=== PATIENT | female | born 1945 | race Asian ===

== ENCOUNTER 2017-05-03 12:57 | Outpatient (CLI) | payer MEDICARE, MEDICAID ==
[~2017-05-03] VITALS: Ht 157.5 cm; Wt 90.0 kg
[2017-05-03 13:00] VITALS: BP 129/64; PULSE 72; RESP 18; Ht 157.5 cm; Wt 90.0 kg
[2017-05-03] MEDS ORDERED: MONT10TA24 PO (13:32)
[2017-05-03] MEDS ORDERED: GABA400C14 PO (13:32)
[2017-05-03] MEDS ORDERED: HYD25 PO (13:32)
[2017-05-03] MEDS ORDERED: OMEP40CA6 PO (13:32)
[2017-05-03] MEDS ORDERED: ATOR20TA38 PO (13:32)
[2017-05-03] MEDS ORDERED: LOSA100T7 PO (13:32)
[2017-05-03] MEDS ORDERED: LORA10TA3 PO (13:32)
[2017-05-03] MEDS ORDERED: ALBU90AE INHALATION (13:32)
[2017-05-03] MEDS ORDERED: GABA300C16 PO (13:32)
--- NOTE | 2017-05-03 14:41 | PN ---
Date/Time of Note Date/Time of Note DATE: 05/03/17 TIME: 14:38 Assessment/Plan Assessment/Plan Assessment/Plan [facility] Progress Note Date of Service: 05/03/2017 Today's Impression & Plan: Overall has remained stable and doing well after laparoscopic cholecystectomy for challenging but uncomplicated operation. Right leg fracture does not appear to be related to the operation and not seem to complicate recovery. Discussed for 15 min counseling time regarding healthy life style and ways to achieve them. With above assessment, I've recommended the followin. F/u with PCP 2. F/u with us prn Thank you very much for allowing us to participate in the care of this very nice patient and wonderful family. If there are any questions, please feel free to contact me at . Major presenting problem: High-risk Complexity decision making: High complexity Please note: Spelling or grammatical errors in this note are likely due to EHR/ dictation systems and are not reflective of patient care quality. Occasional wrong-word or sound-alike substitutions may have occurred due to the inherent limitations of voice recognition software. Please read the chart carefully and recognize, using context, where the substitutions have occurred. The chart may also contain mistakes due to difficulties with voice recognition software. Also please note that the dictation timestamp of this note does not necessarily reflected time of the visit for this service. Updated Clinical Summary: Very pleasant 71-year-old lady with multiple comorbid issues and history of prior issues with gallbladder, presenting with possible acute cholecystitis. Status post difficult but uncomplicated laparoscopic cholecystectomy [facility] 04/10/2017 with findings of hyperemic and inflamed gallbladder without obvious gangrene or perforation. Comorbidities: 1. History of cholelithiasis with biliary colic. Status post difficult but uncomplicated laparoscopic cholecystectomy [facility] 04/10/2017 with findings of hyperemic and inflamed gallbladder without obvious gangrene or perforation. 2. BMI 36.3 3. Chronic gastroesophageal reflux disease 4. Hypertension 5. Hyperlipidemia 6. Asthma 7. Right shoulder arthroscopy Subjective: No major events or complaints since d/c other than above. No major pain complaints and no longer on pain medications for the wounds. No N/V, SOB or CP. + bowel activity. Objective: Vitals: reviewed; please also see EHR Physical Exam: Lungs: breathing comfortably without tachypnea; no audible wheezes, rales or rhonchi on gross exam Abd: Soft, non-tender to mildly tender in the right upper quadrant, and non- distended; no peritoneal signs or guarding. Incisions clean, dry, and intact without any obvious erythema, edema, discharge, or hernia. Skin: Appears pink and feels warm to touch. Right leg in a cast. Neuro: Awake, alert and follows commands appropriately Exam/Review of Systems Vital Signs Vitals Vital Signs Date Time Temp Pulse Resp B/P Pulse Ox O2 Delivery O2 Flow Rate FiO2 05/03/17 13:00 97.9 72 18 129/64 94 Room Air DENNY SOLOMON M.D. May 03, 2017 14:41
== END 2017-05-03 17:00 | disposition home or self-care (01) ==
LOC: HPC 12:57
PROVIDERS: ATTEND Transplant Surgery
DX: K80.70 Calculus of gallbladder and bile duct without cholecystitis without obstruction (principal); K21.9 Gastro-esophageal reflux disease without esophagitis; I10 Essential (primary) hypertension; E78.5 Hyperlipidemia, unspecified; J45.909 Unspecified asthma, uncomplicated
CPT/HCPCS: G0463